=== PATIENT | female | born 1940 | race African-American/Black ===

== ENCOUNTER 2024-06-05 17:20 | Emergency (ER) | payer OTHER, MEDICAID ==
[~2024-06-05] VITALS: Ht 157.5 cm; Wt 84.4 kg
[2024-06-05 18:21] VITALS: BP 117/78; RESP 16; O2SAT 96
[2024-06-05 18:56] VITALS: PULSE 52
[2024-06-05 19:25] LABS: Hematocrit 40.7 % (36.0-46.0); Hemoglobin 13.9 g/dL (12.2-16.2); Mean Corpuscular Hemoglobin 32.9 pg (28.0-32.0); Mean Corpuscular Hgb Conc. 34.2 g/dL (32.0-36.0); Mean Corpuscular Volume 96.2 fL (80.0-100.0); Platelet Count (auto) 196 10^3/uL (140-450); Red Blood Cells 4.23 10^6/uL (4.0-5.20); Red Cell Distribution Width 13.6 % (11.8-14.3); White Blood Cell 4.9 10^3/uL (4.4-10.8)
[2024-06-05 19:27] LABS: Anion Gap 4 (5-15); Carbon Dioxide 31 mmol/L (20-31); Chloride 104 mmol/L (98-107); Potassium 4.7 mmol/L (3.5-5.1); Sodium 139 mmol/L (136-145)
[2024-06-05 19:28] LABS: Calcium 10.1 mg/dL (8.7-10.4)
[2024-06-05 19:32] LABS: Glucose 87 mg/dL (74-106)
[2024-06-05 19:33] LABS: BUN/Creatinine Ratio 10.7 (10.0-20.0); Blood Urea Nitrogen 9 mg/dL (9-23)
[2024-06-05 19:35] LABS: Band Neutrophils % (manual) 0; Basophils % (manual) 0 (0.0-2.0); Blast Cells 0; Metamyelocytes % 0; Myelocytes % 0; Promyelocytes % 0; Reactive Lymphocytes 0
[2024-06-05] MEDS ORDERED: MORPHINE SULFATE 4 MG/ML SYR/VIAL IV ONE (19:45)
[2024-06-05] MEDS ORDERED: ONDANSETRON HCL 4 MG/2 ML VIAL IV ONE (19:45)
--- NOTE | 2024-06-05 19:50 | ED.PDOC ---
History of Present Illness HPI Comments 84-year-old female brought in by family for evaluation of back pain. Patient states she started experiencing right lower back pain since yesterday, sharp, aching, constant, radiating down posterior right leg, with notable swelling of the right leg. Noted bilateral lower extremity swelling for the past week, right worse than the the left. Patient then started experiencing the back pain radiating up the right posterior chest area. She denies any urinary symptoms, denies any nausea or vomiting. Patient has had medicated with Firestone and tramadol at home with no relief. And states she is having a lot of difficulty ambulating due to the pain. Chief Complaint: Back Pain Time Seen by MD: 19:49 Primary Care Provider: PARAMJIT Verma Notes: Nurses Notes Allergies: Coded Allergies: NO KNOWN ALLERGIES (Unverified , 06/05/24) Information Source: Patient Mode of Arrival: Wheelchair Severity: Moderate Timing: Hours Duration: Since onset Prehospital treatment: None Medication Refill: For: Other Past Medical History PAST MEDICAL HISTORY: Anxiety, CAD, HTN, UTI'S Past Medical History (Other): Chronic back pain Surgical History: PTCA, Denies all surgeries COMPENSATION PROGRAMS MANAGER History: Denies all COMPENSATION PROGRAMS MANAGER Hx Family History Family History: Reviewed,noncontributory to illness Social History Smoker: Non-Smoker Alcohol: Denies ETOH Use Drugs: Denies Drug Use Lives In: Home Constitutional: denies: chills, diaphoresis, fatigue, fever, malaise, sweats, weakness, others EENTM: denies: blurred vision, double vision, ear bleeding, ear discharge, ear drainage, ear pain, ear ringing, eye pain, eye redness, hearing loss, mouth pain, mouth swelling, nasal discharge, nose bleeding, nose congestion, nose pain, photophobia, tearing, throat pain, throat swelling, voice changes, others Respiratory: denies: cough, hemoptysis, orthopnea, SOB at rest, shortness of breath, SOB with excertion, stridor, wheezing, others Cardiovascular: denies: chest pain, dizzy spells, diaphoresis, Dyspnea on exertion, edema, irregular heart beat, left arm pain, lightheadedness, palpitations, PND, syncope, others Gastrointestinal: denies: abdomen distended, abdominal pain, blood streaked bowels, constipated, diarrhea, dysphagia, difficulty swallowing, hematemesis, melena, nausea, poor appetite, poor fluid intake, rectal bleeding, rectal pain, vomiting, others Genitourinary: denies: abnormal vagina bleeding, burning, dyspareunia, dysuria, flank pain, frequency, hematuria, incontinence, pain, , vagina dis charge, urgency, others Neurological: denies: dizziness, fainting, headache, left sided numbness, left sided weakness, numbness, paresthesia, pre-existing deficit, right sided numbness, right sided weakness, seizure, speech problems, tingling, tremors, weakness, others Musculoskeletal: reports: back pain, muscle pain (Right leg); denies: gout, joint pain, joint swelling, muscle stiffness, neck pain, others Integumetry: denies: bruises, change in color, change in hair/nails, dryness, laceration, lesions, lumps, rash, wounds, others Allergic/Immunocompromised: denies: Difficulty Healing, Frequent Infections, Hives, Itching, others Hematologic/Lymphatic: denies: anemia, blood clots, easy bleeding, easy bruising, swollen glands, others Endocrine: denies: excessive hunger, excessive sweating, excessive thirst, excessive urination, flushing, intolerance to cold, intolerance to heat, unexplained weight gain, unexplained weight loss, others Psychiatric: denies: anxiety, bipolar disorder, depression, hopeless, panic disorder, schizophrenia, sleepless, suicidal, others Physical Exam General Appearance: No Apparent Distress, Obese HEENT: Other (Unremarkable) Neck: Full Range of Motion, Non-Tender, Normal Inspection Respiratory: Lungs Clear, No Accessory Muscle Use, No Respiratory Distress, Normal Breath Sounds Cardiovascular: No JVD, Regular Rate/Rhythm Breast Exam: Deferred Gastrointestinal: Non Tender, Soft Genitalia: Deferred Pelvic: Deferred Rectal: Deferred Extremities: Leg edema, Pedal edema, Other (Bilateral lower extremity 2+ edema, right greater than left) Musculoskeletal : Location: Right (Right-sided thoracic and lumbar paraspinal tenderness.) Neurologic: Alert (Oriented x4), Normal Affect, Normal Mood, Other (Moves all extremities. No gross focal deficit.) Cerebellar Function: NOT DONE Reflexes: NOT DONE Skin: Dry, Normal Color, Warm Lymphatic: NOT DONE Was a procedure done? Was a procedure done?: No Differential Dx Considerations may include: Musculoskeletal pain, disc disease, UTI, kidney stones, sciatica, DVT, CHF, venous insufficiency among others X-Ray, Labs, Meds, VS Vital Signs Date Time Temp Pulse Resp B/P (MAP) Pulse Ox O2 Delivery O2 Flow Rate FiO2 06/05/24 18:56 52 06/05/24 18:21 97.7 58 16 117/78 (91) 96 06/05/24 18:12 54 Lab Test 06/05/24 20:45 06/05/24 18:49 Range/Units Troponin I High Sensitivity 11 11 </=34 ng/L Thyroid Stimulating Hormone (TSH) 1.86 0.55-4.78 uIU/mL White Blood Count 4.9 4.4-10.8 10^3/uL Red Blood Count 4.23 4.0-5.20 10^6/uL Hemoglobin 13.9 12.2-16.2 g/dL Hematocrit 40.7 36.0-46.0 % Mean Corpuscular Volume 96.2 80.0-100.0 fL Mean Corpuscular Hemoglobin 32.9 H 28.0-32.0 pg Mean Corpuscular Hemoglobin Concent 34.2 32.0-36.0 g/dL Red Cell Distribution Width 13.6 11.8-14.3 % Platelet Count 196 140-450 10^3/uL Mean Platelet Volume 7.7 6.9-10.8 fL Neutrophils (%) (Auto) 37.0-80.0 % Lymphocytes (%) (Auto) 10.0-50.0 % Monocytes (%) (Auto) 0.0-12.0 % Basophils (%) (Auto) 0.0-2.0 % Neutrophils # (Auto) 1.6-8.6 10 ^3/uL Lymphocytes # (Auto) 0.4-5.4 10 ^3/uL Monocytes # (Auto) 0-1.3 10 ^3/uL Differential Total Cells Counted 100.0 100 Neutrophils % (Manual) 57 37.0-80.0 Band Neutrophils % (Manual) 0 Lymphocytes % (Manual) 32 10.0-50.0 Monocytes % (Manual) 10 0-12 Eosinophils % (Manual) 1 0-7 Basophils % (Manual) 0 0.0-2.0 Metamyelocytes % (manual) 0 Myelocytes % (Manual) 0 Promyelocytes % (Manual) 0 Blast Cells % (Manual) 0 Reactive Lymphocytes 0 Platelet Estimate Adequate Sodium Level 139 136-145 mmol/L Potassium Level 4.7 3.5-5.1 mmol/L Chloride Level 104 98-107 mmol/L Carbon Dioxide Level 31 20-31 mmol/L Anion Gap 4 L 5-15 Blood Urea Nitrogen 9 9-23 mg/dL Creatinine 0.84 0.550-1.02 mg/dL Glomerular Filtration Rate Calc 68 >90 mL/min BUN/Creatinine Ratio 10.7 10.0-20.0 Serum Glucose 87 74-106 mg/dL Hemoglobin A1c 5.5 <5.7 % A1C Calcium Level 10.1 8.7-10.4 mg/dL B-Type Natriuretic Peptide 112.54 0-100 pg/mL Bilateral lower extremity venous duplex Clinical History: R>L LE edema Comparison: None Technique: Duplex Doppler evaluation of the deep venous systems of both lower extremities from the common femoral veins to the popliteal veins including color Doppler and spectral/pulsed waveform analysis was performed. Findings: RIGHT SIDE: The common femoral vein demonstrates appropriate compressibility and waveform variability. There is compressibility/patency of the great saphenous vein at the proximal thigh. The femoral vein demonstrates appropriate compressibility and waveform variability. The deep femoral vein demonstrates appropriate compressibility and waveform variability. The popliteal vein demonstrates appropriate compressibility and waveform variability. There is normal compressibility at the tibioperoneal trunk. LEFT SIDE: The common femoral vein demonstrates appropriate compressibility and waveform variability. There is compressibility/patency of the great saphenous vein at the proximal thigh. The femoral vein demonstrates appropriate compressibility and waveform variability. The deep femoral vein demonstrates appropriate compressibility and waveform variability. The popliteal vein demonstrates appropriate compressibility and waveform variability. There is normal compressibility at the tibioperoneal trunk. Impression: No right or left femoropopliteal venous thrombosis. Bilateral cystic lesions in the popliteal fossa measuring 7 cm in the right and 4 cm on the left. These demonstrate internal debris. 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 EXAM: CT THORACIC SPINE WO CONTRAS, CT LS SPINE WO CONTRAST INDICATION: back pain EXAM DATE: 06/05/2024 09:01 PM COMPARISON: None TECHNIQUE: Multiple axial CT images of the thoracic and lumbar spine were obtained using bone algorithm. Axial and coronal reformatting was done. Bone and soft tissue windows were reviewed. Radiation Dose Information: Thoracic CT Dose: CTDI volume is 22.75 mGy. Dose-length product is 782.17 mGy*cm Lumbar CT Dose: CTDI volume is 31.83 mGy. Dose-length product is 1067.0 mGy*cm Findings: There is no evidence of an acute fracture or spondylolisthesis. The vertebral body heights are well-maintained. Moderate spondylosis of the thoracolumbar spine. No evidence of degenerative disc disease. No neuroforaminal narrowing. No spinal canal stenosis. There is a normal thoracic kyphosis and lumbar lordosis. The paraspinal soft tissues appear within normal limits. Cardiomegaly with a small pericardial effusion. Severe coronary atherosclerosis versus stents. Right renal cyst. Diverticulosis. Moderate aortoiliac atherosclerosis. Moderate rectal fecal burden. C7-T1: Normal T1-T2: Normal T2-T3: Normal T3-T4: Normal T4-T5: Normal T5-T6: Normal T6-T7: Normal T7-T8: Normal T8-T9: Normal T9-T10: Normal T10-T11: Normal T11-T12: Normal T12-L1: Normal L1-L2: Severe degenerative disc disease. L2-L3: Moderate degenerative disc disease L3-L4: Moderate degenerative disc disease L4-L5: Moderate degenerative disc disease L5-S1: Normal Impression: 1. No acute osseous abnormalities. 2. Moderate degenerative changes of the thoracolumbar spine with multilevel lumbar degenerative disc disease. X-Ray, Labs, Meds, VS Comment 84-year-old female with a history of hypertension, CAD, UTIs and chronic back pain complaining of severe back pain and lower extremity edema making it difficult to ambulate Vitals remarkable for heart rate 52 Exam remarkable for right-sided thoracic and lumbar paraspinal tenderness, 2+ edema bilateral lower extremities CT T-spine Impression: 1. No acute osseous abnormalities. 2. Moderate degenerative changes of the thoracolumbar spine with multilevel lumbar degenerative disc disease. CT LS-spine Impression: 1. No acute osseous abnormalities. 2. Moderate degenerative changes of the thoracolumbar spine with multilevel lumbar degenerative disc disease. Bilateral lower extremity Doppler ultrasound negative for DVT CBC, basic metabolic panel, BNP unremarkable for any abnormality of acute significance, UA pending Patient treated with the following in the ED: Morphine 4 mg IV, Zofran 4 mg IV with improvement of pain. Patient did not have pain relief with Firestone at home, and is at risk for falls. Plan is to admit the patient for pain control and PT/OT evaluation. Time of 1ST Reevaluation: 19:45 Reevaluation 1ST: Unchanged Patient Education/Counseling: Diagnosis, Treatment Family Education/Counseling: No Family Present Departure 1 Departure Time of Disposition: 22:09 Impression: Primary Impression: Intractable back pain Additional Impression: Lower extremity edema Disposition: ADMITTED INPATIENT Admit to: Med Surg Condition: Guarded Critical Care Note Critical Care Time?: No Stability Stability form required: No Heart Score Heart Score: Heart Score Response (Comments) Value History N/A 0 EKG N/A 0 Age N/A 0 Risk Factors N/A 0 Troponin N/A 0 Total 0 I personally scribed for STAN JOAQUIN MD (JOSE GUADALUPEMATILDE) on 06/05/24 at 19:50. Electronically submitted by Skyler Zapata ([email or web address]). I personally scribed for STAN JOAQUIN MD (DORYS) on 06/05/24 at 21:08. Electronically submitted by Skyler Zapata ([email or web address]). I personally scribed for STAN JOAQUIN MD (DORYS) on 06/05/24 at 21:44. Electronically submitted by Skyler Zapata ([email or web address]). STAN JOAQUIN MD Jun 05, 2024 19:50
[2024-06-05 20:14] LABS: Eosinophils % (manual) 1 (0-7); Lymphocytes % (manual) 32 (10.0-50.0); Monocytes % (manual) 10 (0-12); Platelet Estimate Adequate
--- NOTE | 2024-06-05 21:05 | DVH ---
Bilateral lower extremity venous duplex Clinical History: R>L LE edema Comparison: None Technique: Duplex Doppler evaluation of the deep venous systems of both lower extremities from the common femora l veins to the popliteal veins including color Doppler and spectral/pulsed waveform analysis was perf ormed. Findings: RIGHT SIDE: The common femoral vein demonstrates appropriate compressibility and waveform variability. There is compressibility/patency of the great saphenous vein at the proximal thigh. The femoral vein demonstrates appropriate compressibility and waveform variability. The deep femoral vein demonstrates appropriate compressibility and waveform variability. The popliteal vein demonstrates appropriate compressibility and waveform variability. There is normal compressibility at the tibioperoneal trunk. LEFT SIDE: The common femoral vein demonstrates appropriate compressibility and waveform variability. There is compressibility/patency of the great saphenous vein at the proximal thigh. The femoral vein demonstrates appropriate compressibility and waveform variability. The deep femoral vein demonstrates appropriate compressibility and waveform variability. The popliteal vein demonstrates appropriate compressibility and waveform variability. There is normal compressibility at the tibioperoneal trunk. Impression: No right or left femoropopliteal venous thrombosis. Bilateral cystic lesions in the popliteal fossa measuring 7 cm in the right and 4 cm on the left. Th jona demonstrate internal debris. 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
--- NOTE | 2024-06-05 21:41 | DVH ---
EXAM: CT THORACIC SPINE WO CONTRAS, CT LS SPINE WO CONTRAST INDICATION: back pain EXAM DATE: 06/05/2024 09:01 PM COMPARISON: None TECHNIQUE: Multiple axial CT images of the thoracic and lumbar spine were obtained using bone algorit hm. Axial and coronal reformatting was done. Bone and soft tissue windows were reviewed. Radiation Dose Information: Thoracic CT Dose: CTDI volume is 22.75 mGy. Dose-length product is 782.17 mGy*cm Lumbar CT Dose: CTDI volume is 31.83 mGy. Dose-length product is 1067.0 mGy*cm Findings: There is no evidence of an acute fracture or spondylolisthesis. The vertebral body heights are well-m aintained. Moderate spondylosis of the thoracolumbar spine. No evidence of degenerative disc disease. No neuroforaminal narrowing. No spinal canal stenosis. There is a normal thoracic kyphosis and lumbar lordosis. The paraspinal soft tissues appear within no rmal limits. Cardiomegaly with a small pericardial effusion. Severe coronary atherosclerosis versus stents. Right renal cyst. Diverticulosis. Moderate aortoiliac atherosclerosis. Moderate rectal fecal burden. C7-T1: Normal T1-T2: Normal T2-T3: Normal T3-T4: Normal T4-T5: Normal T5-T6: Normal T6-T7: Normal T7-T8: Normal T8-T9: Normal T9-T10: Normal T10-T11: Normal T11-T12: Normal T12-L1: Normal L1-L2: Severe degenerative disc disease. L2-L3: Moderate degenerative disc disease L3-L4: Moderate degenerative disc disease L4-L5: Moderate degenerative disc disease L5-S1: Normal Impression: 1. No acute osseous abnormalities. 2. Moderate degenerative changes of the thoracolumbar spine with multilevel lumbar degenerative disc disease.
--- NOTE | 2024-06-05 23:28 | DVHINCON2 ---
PIOTR HERRON RESIDENT 06/05/24 2328: Date of service: Jun 05, 2024 History of Present Illness This is a 84-year-old female with past medical history of hypertension, chronic back pain, osteoarthritis, rheumatoid arthritis, atrial fibrillation presented to the ED with a chief complaint of intractable back pain for 1 day prior to this admission. Patient states back pain started yesterday going down to his no drawer both legs, 8/10, and associated with swelling of the bilateral legs. Doppler scan of the lower limb revealed no right or left femoropopliteal venous thrombosis.Bilateral cystic lesions in the popliteal fossa measuring 7 cm in the right and 4 cm on the left. 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 CT of the lumber and thoracic spine demonstrated No acute osseous abnormalities and moderate degenerative changes of the thoracolumbar spine with multilevel lumbar degenerative disc disease. CBC and CMP are unremarkable. Past Medical History Chronic back pain , osteoarthritis, rheumatoid arthritis ,hypertension, chronic atrial fibrillation. Past Surgical History Cholecystectomy, hysterectomy, carpal tunnel surgery on both hands, surgery for vocal cord nodule Allergies: Coded Allergies: NO KNOWN ALLERGIES (Unverified , 06/05/24) Current Medications Current Medications Medications (Trade) Dose Ordered Sig/Shani Route PRN Reason Start Time Stop Time Status Last Admin Morphine Sulfate 2 mg Q6HPRN IV 06/06/24 00:00 UNV Pantoprazole Sodium (Protonix Tablet) 40 mg DAILY PO 06/06/24 10:00 UNV Vital Signs Vital Signs Date Time Temp Pulse Resp B/P (MAP) Pulse Ox O2 Delivery O2 Flow Rate FiO2 06/05/24 18:56 52 06/05/24 18:21 97.7 16 117/78 (91) 96 Physical Exam Physical examination: General Appearance: Alert, Oriented X3, Cooperative, No acute distress HEENT: Atraumatic, PERRLA, EOMI, Mucous membrane moist/pink Respiratory: Clear to auscultation, Normal air movement Cardiovascular: Regular rate, Normal S1, Normal S2, No murmurs, no chest wall tenderness Abdominal: Normal bowel sounds, Soft, No tenderness, No hepatospenomegaly, No masses Extremities: No clubbing, No cyanosis, No edema, Normal pulses, No tenderness/swelling Skin: No rashes, No breakdown, No significant lesion Neuro: Normal speech, Strength at 5/5 X4 ext, Normal tone, Sensation intact, grossly intact cranial nerves. Psych/Mental Status: Mental status NL, Mood NL Labs/Diagnostic Data Labs Test 06/05/24 20:45 06/05/24 18:49 Range/Units Troponin I High Sensitivity 11 </=34 ng/L White Blood Count 4.9 4.4-10.8 10^3/uL Red Blood Count 4.23 4.0-5.20 10^6/uL Hemoglobin 13.9 12.2-16.2 g/dL Hematocrit 40.7 36.0-46.0 % Mean Corpuscular Volume 96.2 80.0-100.0 fL Mean Corpuscular Hemoglobin 32.9 H 28.0-32.0 pg Mean Corpuscular Hemoglobin Concent 34.2 32.0-36.0 g/dL Red Cell Distribution Width 13.6 11.8-14.3 % Platelet Count 196 140-450 10^3/uL Mean Platelet Volume 7.7 6.9-10.8 fL Neutrophils (%) (Auto) 37.0-80.0 % Lymphocytes (%) (Auto) 10.0-50.0 % Monocytes (%) (Auto) 0.0-12.0 % Basophils (%) (Auto) 0.0-2.0 % Neutrophils # (Auto) 1.6-8.6 10 ^3/uL Lymphocytes # (Auto) 0.4-5.4 10 ^3/uL Monocytes # (Auto) 0-1.3 10 ^3/uL Differential Total Cells Counted 100.0 100 Neutrophils % (Manual) 57 37.0-80.0 Band Neutrophils % (Manual) 0 Lymphocytes % (Manual) 32 10.0-50.0 Monocytes % (Manual) 10 0-12 Eosinophils % (Manual) 1 0-7 Basophils % (Manual) 0 0.0-2.0 Metamyelocytes % (manual) 0 Myelocytes % (Manual) 0 Promyelocytes % (Manual) 0 Blast Cells % (Manual) 0 Reactive Lymphocytes 0 Platelet Estimate Adequate Sodium Level 139 136-145 mmol/L Potassium Level 4.7 3.5-5.1 mmol/L Chloride Level 104 98-107 mmol/L Carbon Dioxide Level 31 20-31 mmol/L Anion Gap 4 L 5-15 Blood Urea Nitrogen 9 9-23 mg/dL Creatinine 0.84 0.550-1.02 mg/dL Glomerular Filtration Rate Calc 68 >90 mL/min BUN/Creatinine Ratio 10.7 10.0-20.0 Serum Glucose 87 74-106 mg/dL Calcium Level 10.1 8.7-10.4 mg/dL B-Type Natriuretic Peptide 112.54 0-100 pg/mL Assessment Assessment and plan - Patient presented with intractable back pain that radiates down to both legs with bilateral leg swelling. Doppler scan of the lower limb excluded the possibility of DVT and CT of thoracic and lumbar spine revealed no acute osseous abnormality on chronic degenerative changes in the spine - Patient was given IV morphine 4 mg once - Physical examination , labs and initial imaging excluded the possibility of cord compression or other acute medical emergencies. - Patient is advised to continue home meds for chronic back pain - Patient is being discharged and advice to book an appointment with PCP in 7 days. Plan discussed with: Patient, Other WILFRIDO WESTFALL MD 06/08/24 2002: Date of service: Jun 05, 2024 Allergies: Coded Allergies: NO KNOWN ALLERGIES (Unverified , 06/05/24) Plan discussed with: Patient Date of Service: Jun 05, 2024 Billing Provider: WILFRIDO WESTFALL MD Common Visit Codes: 70586-CIJ/OBS SAME DATE (HIGH) PIOTR HERRON RESIDENT Jun 05, 2024 23:28 WILFRIDO WESTFALL MD Jun 08, 2024 20:02
[2024-06-06] MEDS ORDERED: MORPHINE SULFATE INJ 2 MG/ml SYRG IV PRN
--- NOTE | 2024-06-06 00:08 | DVH ---
CHEST RADIOGRAPH Indication: Chest Pain Technique: Single frontal view of the chest was obtained Comparison: None FINDINGS: Lines and Tubes: None Lungs: Clear Pleura: No effusion. No pneumothorax. Cardiomediastinal contours: Unremarkable Bones: Unremarkable IMPRESSION: 1. Clear lungs.
[2024-06-06] MEDS ORDERED: PANTOPRAZOLE 40 MG TAB PO SCH (10:00)
--- NOTE | 2024-06-08 14:01 | ECG ---
[facility] Test Date: 2024-06-05 Test Time: 18:12:17 Pat Name: STEPHENIE OCHOA Department: ER Room: [address] [place] [address] A Gender: F Sorting Supervisor: MELY : 1940 Requested By: STAN LAGUERRE Order Number: [id number] Reading MD: Cade Veronica Measurements Intervals [place] Rate: 54 P: 19 NC: 195 QRS: -37 QRSD: 92 T: -9 QT: 505 QTc: 479 Interpretive Statements Sinus rhythm Inferior infarct, old Consider anterior infarct Baseline wander in lead(s) V3 Electronically Signed On 06-09-2024 18:13:57 PST by Cade Veronica Please click the below link to view image of tracing.
== END 2024-06-05 22:59 | disposition admitted as inpatient to this hospital (09) ==
LOC: ER 17:20 → OVERFLOW 22:57 → UNDOADMIN 22:57 → UNDODISIN 23:24
DX: E11.8 Type 2 diabetes mellitus with unspecified complications (principal); R60.0 Localized edema; M54.50 Low back pain, unspecified; I10 Essential (primary) hypertension; F41.9 Anxiety disorder, unspecified; G89.29 Other chronic pain; I25.10 Atherosclerotic heart disease of native coronary artery without angina pectoris
CPT/HCPCS: 36415; 71045; 72128; 72131; 80048; 83036; 83880; 84443; 84484; 85007; 85027; 93005; 93970; G0378

== ENCOUNTER 2024-12-09 12:36 | Inpatient (IN) | payer OTHER, MEDICAID ==
[~2024-12-09] VITALS: Ht 157.5 cm; Wt 82.0 kg
[2024-12-09 13:52] LABS: Hematocrit 40.5 % (36.0-46.0); Hemoglobin 13.8 g/dL (12.2-16.2); Mean Corpuscular Hemoglobin 32.5 pg (28.0-32.0); Mean Corpuscular Volume 95.2 fL (80.0-100.0); Nucleated Red Blood Cells % 0.1 %
[2024-12-09 14:06] LABS: Calcium 10.1 mg/dL (8.7-10.4); Chloride 105 mmol/L (98-107); Potassium 4.4 mmol/L (3.5-5.1); Sodium 142 mmol/L (136-145)
[2024-12-09 14:07] LABS: Anion Gap 7 (5-15); Carbon Dioxide 30 mmol/L (20-31)
[2024-12-09 14:12] LABS: BUN/Creatinine Ratio 12.2 (10.0-20.0); Blood Urea Nitrogen 12 mg/dL (9-23); Glucose 100 mg/dL (74-106)
[2024-12-09 15:50] LABS: Urine Protein, UAD Negative (Negative)
--- NOTE | 2024-12-09 17:48 | ED.PDOC ---
History of Present Illness HPI Comments 84F presents with three days of right-sided flank pain associated with dysuria and polyuria. Patient reports tactile fevers and right flank pain that is 8/10 nonradiating it is not relieved by anything. 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 Family History Family History: Reviewed,noncontributory to illness Social History Smoker: Non-Smoker Alcohol: Denies ETOH Use Drugs: Denies Drug Use Lives In: Home All Other Systems: Reviewed and Negative Physical Exam General Appearance: Mild Distress HEENT: Pharynx Normal Neck: Normal Inspection Respiratory: No Respiratory Distress Cardiovascular: No Edema Breast Exam: Deferred Gastrointestinal: Non Tender Genitalia: Deferred Pelvic: Deferred Rectal: Deferred Extremities: No pedal edema Neurologic: No Motor Deficits Cerebellar Function: NOT DONE Reflexes: NOT DONE Skin: Normal Color Lymphatic: NOT DONE Was a procedure done? Was a procedure done?: No Differential Dx Considerations may include: Pyelonephritis, UTI, viral syndrome X-Ray, Labs, Meds, VS Vital Signs Date Time Temp Pulse Resp B/P (MAP) Pulse Ox O2 Delivery O2 Flow Rate FiO2 12/09/24 13:00 98.3 67 16 109/60 (76) 95 98.3 Lab Test 12/09/24 13:39 12/09/24 13:04 Range/Units White Blood Count 6.7 4.4-10.8 10^3/uL Red Blood Count 4.25 4.0-5.20 10^6/uL Hemoglobin 13.8 12.2-16.2 g/dL Hematocrit 40.5 36.0-46.0 % Mean Corpuscular Volume 95.2 80.0-100.0 fL Mean Corpuscular Hemoglobin 32.5 H 28.0-32.0 pg Mean Corpuscular Hemoglobin Concent 34.1 32.0-36.0 g/dL Red Cell Distribution Width 13.6 11.8-14.3 % Platelet Count 181 140-450 10^3/uL Mean Platelet Volume 7.4 6.9-10.8 fL Neutrophils (%) (Auto) 57.4 37.0-80.0 % Lymphocytes (%) (Auto) 27.6 10.0-50.0 % Monocytes (%) (Auto) 12.4 H 0.0-12.0 % Eosinophils (%) (Auto) 1.9 0.0-7.0 % Basophils (%) (Auto) 0.7 0.0-2.0 % Neutrophils # (Auto) 3.8 1.6-8.6 10 ^3/uL Lymphocytes # (Auto) 1.8 0.4-5.4 10 ^3/uL Monocytes # (Auto) 0.8 0-1.3 10 ^3/uL Eosinophils # (Auto) 0.1 0-0.8 10 ^3/uL Basophils # (Auto) 0 0-0.2 10 ^3/uL Nucleated Red Blood Cells 0.1 % Sodium Level 142 136-145 mmol/L Potassium Level 4.4 3.5-5.1 mmol/L Chloride Level 105 98-107 mmol/L Carbon Dioxide Level 30 20-31 mmol/L Anion Gap 7 5-15 Blood Urea Nitrogen 12 9-23 mg/dL Creatinine 0.98 0.550-1.02 mg/dL Glomerular Filtration Rate Calc 57 >90 mL/min BUN/Creatinine Ratio 12.2 10.0-20.0 Serum Glucose 100 74-106 mg/dL Calcium Level 10.1 8.7-10.4 mg/dL Troponin I High Sensitivity 59 *H </=34 ng/L Urine Color Yellow Yellow Urine Clarity Turbid H Clear Urine pH 6.0 5.0-9.0 Urine Specific [place] 1.021 1.001-1.035 Urine Protein Negative Negative Urine Ketones Negative Negative Urine Blood Negative Negative /uL Urine Nitrite 2+ H Negative Urine Bilirubin Negative Negative Urine Urobilinogen 2 H Negative mg/dL Urine Leukocyte Esterase 3+ Negative /uL Urine RBC 1 0 - 4 /hpf Urine Microscopic WBC 39 H 0-5 /HPF Urine Squamous Epithelial Cells Mod <5 /hpf Urine Bacteria Mod H None Seen /hpf Urine Mucus Few None Seen Urine Glucose Normal Normal mg/dL Time of 1ST Reevaluation: 17:46 Reevaluation 1ST: Improved Patient Education/Counseling: Diagnosis, Treatment Family Education/Counseling: No Family Present SEPSIS Sepsis Screen Date sepsis recognized/suspect: Dec 09, 2024 Time Sepsis recognized/suspect: 1300 Recent Procedure: No On Antibiotic Therapy: Yes Respiratory Rate >20: No Heart Rate >90: No Temp<36 C (96.8 F) or >38.3 C: No SBP <90 or MAP <65 mmHG: No New Acute Mental Status Change: No Is the patient on CPAP, BIPAP,: No Physician Orders NS (12/09/24 17:45) Ceftriaxone Ivpb Rocephin (12/09/24 17:45) Vital Signs Date Time Temp Pulse Resp B/P (MAP) Pulse Ox O2 Delivery O2 Flow Rate FiO2 12/09/24 13:00 98.3 67 16 109/60 (76) 95 98.3 Laboratory Tests Test 12/09/24 13:39 White Blood Count 6.7 10^3/uL (4.4-10.8) Departure 1 Departure Time of Disposition: 17:47 (Patient with pyelonephritis. Patient is not septic. We will admit patient for further workup) Impression: Primary Impression: Pyelonephritis Additional Impression: Flank pain Disposition: ADMITTED INPATIENT Admit to: Med Surg Condition: Serious Critical Care Note Critical Care Time?: Yes Critical care comment: Intractable abdominal pain Authorized and Performed by: Krissy Menjivar MD Total critical care time: Approximately 37 minutes Due to a high probability of clinically significant, life threatening deterioration, the patient required my highest level of preparedness to intervene emergently and I personally spent this critical care time directly and personally managing the patient. This critical care time included obtaining a history; examining the patient; pulse oximetry; ordering and review of studies; arranging urgent treatment with development of a management plan; evaluation of patient's response to treatment; frequent reassessment; and, discussions with other providers. This critical care time was performed to assess and manage the high probability of imminent, life-threatening deterioration that could result in multi-organ failure. It was exclusive of separately billable procedures and treating other patients and teaching time. Please see my other sections and the rest of the note for further information on patient assessment and treatment. Stability Stability form required: KRISSY Luque MD Dec 09, 2024 17:48
[2024-12-09] MEDS: SODIUM CHLORIDE 0.9% 1,000 ML IV ONE (17:57)
[2024-12-09] MEDS: cefTRIAXone 1GM/50ML D5W 50 ML IV ONE ×2 (17:57→21:02)
[2024-12-09] MEDS: MORPHINE SULFATE 4 MG/ML SYR/VIAL IV ONE (17:59)
[2024-12-09] MEDS: ONDANSETRON HCL 4 MG/2 ML VIAL IV ONE (17:59)
[2024-12-09 18:08] VITALS: PULSE 74; RESP 15; O2SAT 98
--- NOTE | 2024-12-09 20:02 | DVHHP2 ---
Admitting Diagnosis: Dysuria History of Present Illness 84F presents with three days of right-sided flank pain associated with dysuria and polyuria. Patient reports tactile fevers and right flank pain that is 8/10 nonradiating it is not relieved by anything. 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 Family History Family History: Reviewed,noncontributory to illness Social History Smoker: Non-Smoker Alcohol: Denies ETOH Use Drugs: Denies Drug Use Lives In: Home Allergies: Coded Allergies: NO KNOWN ALLERGIES (Unverified , 06/05/24) Current Medications Current Medications Medications (Trade) Dose Ordered Sig/Shani Route PRN Reason Start Time Stop Time Status Last Admin Ceftriaxone Sodium/Dextrose 50 ml @ 50 mls/hr DAILY IV 12/10/24 10:00 Sodium Chloride (Saline Lock Ns) 10 ml Q8HR IV 12/09/24 22:00 Docusate Sodium (Colace Capsule) 100 mg BIDPRN PRN PO FOR CONSTIPATION 12/09/24 20:15 Acetaminophen (Tylenol Tablet) 650 mg Q6HP PRN PO PAIN SCALE 1-3 OR TEMP>100.4 12/09/24 20:15 Acetaminophen/ Hydrocodone Bitart ([place] 5/325MG Tab) 1 tab Q4HP PRN PO MODERATE PAIN (4-6 PAIN SCALE) 12/09/24 20:15 Ondansetron HCl (Zofran) 4 mg Q4HP PRN IV NAUSEA / VOMITING 12/09/24 20:15 Enoxaparin Sodium (Lovenox) 40 mg DAILY SC 12/10/24 10:00 Vital Signs Vital Signs Date Time Temp Pulse Resp B/P (MAP) Pulse Ox O2 Delivery O2 Flow Rate FiO2 12/09/24 19:45 Room Air* 0 21 12/09/24 19:44 71 18 130/65 12/09/24 19:40 100 12/09/24 13:00 98.3 98.3 Physical Exam Generally-85 years old woman, overweight, sitting chair. Mild distress HEENT-atraumatic normocephalic Heart-regular rate and rhythm Lungs clear to auscultation Abdomen soft nontender nondistended Musculoskeletal-no edema cyanosis Neuro-AO x3, no focal deficits SEPSIS Sepsis Screen Date sepsis recognized/suspect: Dec 09, 2024 Time Sepsis recognized/suspect: 1300 Recent Procedure: No On Antibiotic Therapy: Yes Respiratory Rate >20: No Heart Rate >90: No Temp<36 C (96.8 F) or >38.3 C: No SBP <90 or MAP <65 mmHG: No New Acute Mental Status Change: No Is the patient on CPAP, BIPAP,: No Physician Orders Blood Culture (12/09/24 20:02) Urine Bacterial Culture (12/09/24 20:02) Lactated Ringer's (12/09/24 20:15) Admit (12/09/24 20:02) Code Status (12/09/24 20:02) Vital Signs .PER UNIT PROTOCOL (12/09/24 20:02) Review Orders With Adm.Md (12/09/24 20:02) Encourage Activity As Tolerate (12/09/24 20:02) Regular Diet (12/10/24 Breakfast) Sodium Chloride Lock (Saline Lock Ns) (12/09/24 22:00) Docusate Sodium Capsule (Colace Capsule) (12/09/24 20:15) Acetaminophen Tablet (Tylenol Tablet) (12/09/24 20:15) Notify Md Of Changes From Base (12/09/24 20:02) Advance Directive (12/09/24 20:02) Patient Condition (12/09/24 20:02) Allergies (12/09/24 20:02) Hydrocodone-Acet 5/325mg Tab ([place] 5/32 (12/09/24 20:15) Ondansetron Hcl (Zofran) (12/09/24 20:15) Enoxaparin Sodium (Lovenox) (12/10/24 10:00) Comprehensive Metabolic Panel (12/10/24 05:00) Comprehensive Metabolic Panel (12/11/24 05:00) Comprehensive Metabolic Panel (12/12/24 05:00) Comprehensive Metabolic Panel (12/13/24 05:00) Comprehensive Metabolic Panel (12/14/24 05:00) Complete Blood Count (12/10/24 05:00) Complete Blood Count (12/11/24 05:00) Complete Blood Count (12/12/24 05:00) Complete Blood Count (12/13/24 05:00) Complete Blood Count (12/14/24 05:00) Ceftriaxone 2gm/50ml D5w (Rocephin 2gm/5 (12/10/24 10:00) Ceftriaxone 1gm/50ml D5w (Rocephin) (12/09/24 20:30) Vital Signs Date Time Temp Pulse Resp B/P (MAP) Pulse Ox O2 Delivery O2 Flow Rate FiO2 12/09/24 19:45 Room Air* 0 21 12/09/24 19:44 71 18 130/65 12/09/24 19:40 71 18 130/65 (86) 100 12/09/24 18:08 74 15 98 Room Air* 0 21 12/09/24 13:00 98.3 67 16 109/60 (76) 95 98.3 Laboratory Tests Test 12/09/24 13:39 White Blood Count 6.7 10^3/uL (4.4-10.8) Medications Medications Dose Ordered Sig/Shani Route Start Time Stop Time Status Last Admin Dose Admin Ceftriaxone Sodium 50 ml @ 100 mls/hr ONCE ONCE IV 12/09/24 17:45 12/09/24 18:14 DC 12/09/24 17:57 Morphine Sulfate 4 mg ONCE ONCE IV 12/09/24 18:00 12/09/24 18:01 DC 12/09/24 19:44 Ondansetron HCl 4 mg ONCE ONCE IV 12/09/24 18:00 12/09/24 18:01 DC 12/09/24 19:38 Sodium Chloride 1,000 ml @ 1,000 mls/hr Q1H ONCE IV 12/09/24 17:45 12/09/24 18:44 DC 12/09/24 17:57 Results Labs Test 12/09/24 13:39 12/09/24 13:04 Range/Units White Blood Count 6.7 4.4-10.8 10^3/uL Red Blood Count 4.25 4.0-5.20 10^6/uL Hemoglobin 13.8 12.2-16.2 g/dL Hematocrit 40.5 36.0-46.0 % Mean Corpuscular Volume 95.2 80.0-100.0 fL Mean Corpuscular Hemoglobin 32.5 H 28.0-32.0 pg Mean Corpuscular Hemoglobin Concent 34.1 32.0-36.0 g/dL Red Cell Distribution Width 13.6 11.8-14.3 % Platelet Count 181 140-450 10^3/uL Mean Platelet Volume 7.4 6.9-10.8 fL Neutrophils (%) (Auto) 57.4 37.0-80.0 % Lymphocytes (%) (Auto) 27.6 10.0-50.0 % Monocytes (%) (Auto) 12.4 H 0.0-12.0 % Eosinophils (%) (Auto) 1.9 0.0-7.0 % Basophils (%) (Auto) 0.7 0.0-2.0 % Neutrophils # (Auto) 3.8 1.6-8.6 10 ^3/uL Lymphocytes # (Auto) 1.8 0.4-5.4 10 ^3/uL Monocytes # (Auto) 0.8 0-1.3 10 ^3/uL Eosinophils # (Auto) 0.1 0-0.8 10 ^3/uL Basophils # (Auto) 0 0-0.2 10 ^3/uL Nucleated Red Blood Cells 0.1 % Sodium Level 142 136-145 mmol/L Potassium Level 4.4 3.5-5.1 mmol/L Chloride Level 105 98-107 mmol/L Carbon Dioxide Level 30 20-31 mmol/L Anion Gap 7 5-15 Blood Urea Nitrogen 12 9-23 mg/dL Creatinine 0.98 0.550-1.02 mg/dL Glomerular Filtration Rate Calc 57 >90 mL/min BUN/Creatinine Ratio 12.2 10.0-20.0 Serum Glucose 100 74-106 mg/dL Calcium Level 10.1 8.7-10.4 mg/dL Troponin I High Sensitivity 59 *H </=34 ng/L Urine Color Yellow Yellow Urine Clarity Turbid H Clear Urine pH 6.0 5.0-9.0 Urine Specific [place] 1.021 1.001-1.035 Urine Protein Negative Negative Urine Ketones Negative Negative Urine Blood Negative Negative /uL Urine Nitrite 2+ H Negative Urine Bilirubin Negative Negative Urine Urobilinogen 2 H Negative mg/dL Urine Leukocyte Esterase 3+ Negative /uL Urine RBC 1 0 - 4 /hpf Urine Microscopic WBC 39 H 0-5 /HPF Urine Squamous Epithelial Cells Mod <5 /hpf Urine Bacteria Mod H None Seen /hpf Urine Mucus Few None Seen Urine Glucose Normal Normal mg/dL Primary Diagnosis Dysuria likely due to pyelonephritis Plan Positive urine Start ceftriaxone 2 g q.day Follow up with the urine culture , blood culture IV fluids Pain control Full code Lovenox for DVT prophylaxis No GI prophylaxis needed Regular diet Plan discussed with: Patient Problems List: (1) Pyelonephritis Status: Acute Date of Service: Dec 09, 2024 Billing Provider: IDRIS PRITCHETT MD Common Visit Codes: [id number] INP/OBS CARE (HIGH) IDRIS PRITCHETT MD Dec 09, 2024 20:01
[2024-12-09] MEDS ORDERED: DOCUSATE SOD 100 MG CAP PO PRN (20:15)
[2024-12-09] MEDS ORDERED: ACETAMINOPHEN 325 MG TAB PO PRN (20:15)
[2024-12-09] MEDS ORDERED: ONDANSETRON HCL 4 MG/2 ML VIAL IV PRN (20:15)
[2024-12-09] MEDS: LACTATED RINGER'S 1,000 ML IV ONE (20:41)
[2024-12-09] MEDS: SODIUM CHLOR 0.9% PF (SALINE LOCK) 10ML VIAL/SYR IV SCH (22:00)
[2024-12-09 23:45] VITALS: BP 136/72; PULSE 61; RESP 20; TEMP 97.7; O2SAT 96
[2024-12-10] VITALS (8 sets, daily range): BP systolic 99–136; BP diastolic 55–72; PULSE 59–68; RESP 17–18; TEMP 97.7–98.7; O2SAT 95–99
[2024-12-10] MEDS: HYDROcodone-ACET 5/325MG TAB PO PRN (00:41)
[2024-12-10 06:58] LABS: Hematocrit 41.1 % (36.0-46.0); Hemoglobin 14.3 g/dL (12.2-16.2); Mean Corpuscular Hemoglobin 32.9 pg (28.0-32.0); Mean Corpuscular Volume 94.8 fL (80.0-100.0); Nucleated Red Blood Cells % 0.2 %
[2024-12-10 07:04] LABS: Alanine Aminotransferase 23 U/L (7-40); Albumin 4.1 g/dL (3.2-4.8); Alkaline Phosphatase 60 U/L (46-116); Anion Gap 9 (5-15); BUN/Creatinine Ratio 10.4 (10.0-20.0); Bilirubin, Total 0.3 mg/dL (0.2-1.0); Calcium 9.0 mg/dL (8.7-10.4); Carbon Dioxide 26 mmol/L (20-31); Glucose 88 mg/dL (74-106); Potassium 4.0 mmol/L (3.5-5.1); Sodium 143 mmol/L (136-145); Total Protein 6.7 g/dL (5.7-8.2)
[2024-12-10 07:06] LABS: Blood Urea Nitrogen 8 mg/dL (9-23); Chloride 108 mmol/L (98-107)
[2024-12-10] MEDS: cefTRIAXone 2GM/50ML D5W 50 ML IV SCH (10:23)
[2024-12-10] MEDS: ENOXAPARIN SOD 40 MG/0.4 ML SYRINGE SC SCH (10:23)
--- NOTE | 2024-12-10 15:56 | DVHPN2 ---
Subjective She is admitted yesterday and noted to have a acute urinary tract infection. Complains of mild right flank discomfort today. Otherwise she is alert awake oriented x3. Her urine cultures were positive for Gram-negative rods Changes from previous H/P or p: No Changes Objective Vitals Vital Signs Date Time Temp Pulse Resp B/P (MAP) Pulse Ox O2 Delivery O2 Flow Rate FiO2 12/10/24 13:00 98.7 68 18 108/69 (82) 96 98.7 12/10/24 01:10 Room Air* 0 21 Intake/Output Intake and Output 12/10/24 07:00 Intake Total 250 ml Output Total 0 ml Balance 250 ml Intake Oral 200 ml IV Total 50 ml Output Urine Total 0 ml Exam Comfortable in bed without distress. Complains of mild right flank pain. HEENT neck supple no JVD. Heart regular rate and rhythm S1-S2. Lungs fair air movement without rales wheezes. Abdomen soft nontender obese positive bowel sounds. Extremities no edema positive pulses. Medications Current Medications Medications Dose Ordered Sig/Shani Route Start Time Stop Time Status Last Admin Dose Admin Ceftriaxone Sodium/Dextrose 50 ml @ 50 mls/hr DAILY IV 12/10/24 10:00 12/10/24 10:23 50 MLS/HR Sodium Chloride 10 ml Q8HR IV 12/09/24 22:00 12/10/24 05:36 10 ML Docusate Sodium 100 mg BIDPRN PRN PO 12/09/24 20:15 Acetaminophen 650 mg Q6HP PRN PO 12/09/24 20:15 Acetaminophen/ Hydrocodone Bitart 1 tab Q4HP PRN PO 12/09/24 20:15 12/10/24 11:29 1 TAB Ondansetron HCl 4 mg Q4HP PRN IV 12/09/24 20:15 Enoxaparin Sodium 40 mg DAILY SC 12/10/24 10:00 12/10/24 10:23 40 MG Laboratory Results Laboratory Tests 12/10/24 05:41 Chemistry Test 12/10/24 05:41 Albumin 4.1 g/dL (3.2-4.8) Calcium Level 9.0 mg/dL (8.7-10.4) Total Protein 6.7 g/dL (5.7-8.2) LFT Test 12/10/24 05:41 Alanine Aminotransferase (ALT) 23 U/L (7-40) Alkaline Phosphatase 60 U/L (46-116) Aspartate Amino Transferase (AST) 29 U/L (13-40) Total Bilirubin 0.3 mg/dL (0.2-1.0) Urinalysis Test 12/09/24 13:04 Urine Color Yellow (Yellow) Urine Clarity Turbid (Clear) H Urine pH 6.0 (5.0-9.0) Urine Specific [place] 1.021 (1.001-1.035) Urine Protein Negative (Negative) Urine Ketones Negative (Negative) Urine Blood Negative /uL (Negative) Urine Nitrite 2+ (Negative) H Urine Bilirubin Negative (Negative) Urine Urobilinogen 2 mg/dL (Negative) H Urine Leukocyte Esterase 3+ /uL (Negative) Urine RBC 1 /hpf (0 - 4) Urine Microscopic WBC 39 /HPF (0-5) H Urine Squamous Epithelial Cells Mod /hpf (<5) Urine Bacteria Mod /hpf (None Seen) H Urine Mucus Few (None Seen) Urine Glucose Normal mg/dL (Normal) Microbiology Microbiology Date/Time Source Procedure Growth Status 12/09/24 13:04 Voided Urine Urine Culture - Preliminary Resulted Assessment/Plan Assessment/Plan Continue current antibiotic as she is receiving till final culture results are available. I will start her on lidocaine cream to apply to the back for her pain. Otherwise encouraged activity and ambulation. Continue rest of supportive care and treatment. Follow clinical management per clinical course. Discussed with the patient and nurse regarding care plan. Plan discussed with: Patient My Orders Orders - CHARLIE ESTRELLA MD Procedure Category Date Status Time Troponin-I Hs LAB 12/11/24 Verified 06:00 Troponin-I Hs LAB 12/10/24 Logged 17:18 Pt Request For Service PT 12/10/24 Logged 14:18 Lidocaine 5% Topical PHA 12/10/24 Verified Ointment (Xylocaine 22:00 Problem List: (1) Pyelonephritis (2) Intractable back pain (3) Flank pain Date of Service: Dec 10, 2024 Billing Provider: CHARLIE ESTRELLA MD Common Visit Codes: [id number] INP/OBS CARE(MOD) CHARLIE ESTRELLA MD Dec 10, 2024 15:56
[2024-12-10] MEDS: LIDOCAINE HCL 5 % TOP OINT 35 GM TOP SCH (22:11)
[2024-12-11] VITALS (7 sets, daily range): BP systolic 100–127; BP diastolic 59–75; PULSE 60–80; RESP 18; TEMP 97.9–98.7; O2SAT 93–99
[2024-12-11 06:17] LABS: Hematocrit 37.9 % (36.0-46.0); Hemoglobin 12.9 g/dL (12.2-16.2); Mean Corpuscular Hemoglobin 32.7 pg (28.0-32.0); Mean Corpuscular Volume 96.2 fL (80.0-100.0); Nucleated Red Blood Cells % 0.1 %
[2024-12-11 06:25] LABS: Alanine Aminotransferase 17 U/L (7-40); Alkaline Phosphatase 51 U/L (46-116); Anion Gap 8 (5-15); Calcium 8.7 mg/dL (8.7-10.4); Carbon Dioxide 26 mmol/L (20-31); Glucose 85 mg/dL (74-106); Potassium 4.1 mmol/L (3.5-5.1); Sodium 143 mmol/L (136-145)
[2024-12-11 06:26] LABS: BUN/Creatinine Ratio 13.7 (10.0-20.0); Blood Urea Nitrogen 10 mg/dL (9-23); Total Protein 6.0 g/dL (5.7-8.2)
[2024-12-11 06:27] LABS: Albumin 3.7 g/dL (3.2-4.8)
[2024-12-11 06:39] LABS: Bilirubin, Total 0.3 mg/dL (0.2-1.0); Chloride 109 mmol/L (98-107)
[2024-12-11] MEDS ORDERED: APIX5TAB PO (09:03)
[2024-12-11] MEDS ORDERED: PANT1INJ3 IV (09:03)
[2024-12-11] MEDS ORDERED: EZET10TA22 PO (09:03)
[2024-12-11] MEDS ORDERED: AMLO1TAB22 PO (09:03)
[2024-12-11] MEDS ORDERED: METO-289 PO (09:03)
[2024-12-11] MEDS ORDERED: PRAV20TA3 PO (09:03)
[2024-12-11] MEDS ORDERED: EST0625T EXT (09:05)
--- NOTE | 2024-12-11 15:20 | DVHPN2 ---
Subjective Urine culture is growing mixed stu. Patient's symptoms are improved. Changes from previous H/P or p: No Changes Objective Vitals Vital Signs Date Time Temp Pulse Resp B/P (MAP) Pulse Ox O2 Delivery O2 Flow Rate FiO2 12/11/24 13:00 97.9 70 18 115/59 (77) 94 97.9 12/11/24 08:00 Nasal Cannula* 2 28 Intake/Output Intake and Output 12/11/24 07:00 Intake Total 804 ml Balance 804 ml Intake Oral 754 ml IV Total 50 ml # Voids 4 Exam Comfortable in bed without distress. Complains of mild right flank pain. HEENT neck supple no JVD. Heart regular rate and rhythm S1-S2. Lungs fair air movement without rales wheezes. Abdomen soft nontender obese positive bowel sounds. Extremities no edema positive pulses. Medications Current Medications Medications Dose Ordered Sig/Shani Route Start Time Stop Time Status Last Admin Dose Admin Ceftriaxone Sodium/Dextrose 50 ml @ 50 mls/hr DAILY IV 12/10/24 10:00 12/11/24 09:20 50 MLS/HR Sodium Chloride 10 ml Q8HR IV 12/09/24 22:00 12/11/24 14:00 10 ML Docusate Sodium 100 mg BIDPRN PRN PO 12/09/24 20:15 Acetaminophen 650 mg Q6HP PRN PO 12/09/24 20:15 Acetaminophen/ Hydrocodone Bitart 1 tab Q4HP PRN PO 12/09/24 20:15 12/10/24 22:17 1 TAB Ondansetron HCl 4 mg Q4HP PRN IV 12/09/24 20:15 Enoxaparin Sodium 40 mg DAILY SC 12/10/24 10:00 12/11/24 09:20 40 MG Lidocaine HCl 1 applic Q8HP TOP 12/10/24 22:00 12/11/24 14:00 1 APPLIC Laboratory Results Laboratory Tests 12/11/24 04:39 Chemistry Test 12/11/24 04:39 Albumin 3.7 g/dL (3.2-4.8) Calcium Level 8.7 mg/dL (8.7-10.4) Total Protein 6.0 g/dL (5.7-8.2) LFT Test 12/11/24 04:39 Alanine Aminotransferase (ALT) 17 U/L (7-40) Alkaline Phosphatase 51 U/L (46-116) Aspartate Amino Transferase (AST) 26 U/L (13-40) Total Bilirubin 0.3 mg/dL (0.2-1.0) Urinalysis Test 12/09/24 13:04 Urine Color Yellow (Yellow) Urine Clarity Turbid (Clear) H Urine pH 6.0 (5.0-9.0) Urine Specific [place] 1.021 (1.001-1.035) Urine Protein Negative (Negative) Urine Ketones Negative (Negative) Urine Blood Negative /uL (Negative) Urine Nitrite 2+ (Negative) H Urine Bilirubin Negative (Negative) Urine Urobilinogen 2 mg/dL (Negative) H Urine Leukocyte Esterase 3+ /uL (Negative) Urine RBC 1 /hpf (0 - 4) Urine Microscopic WBC 39 /HPF (0-5) H Urine Squamous Epithelial Cells Mod /hpf (<5) Urine Bacteria Mod /hpf (None Seen) H Urine Mucus Few (None Seen) Urine Glucose Normal mg/dL (Normal) Microbiology Microbiology Date/Time Source Procedure Growth Status 12/09/24 21:49 Blood Blood Culture - Preliminary NO GROWTH AFTER 24 HOURS OF INCUBATION. Resulted 12/09/24 13:04 Voided Urine Urine Culture - Final Complete Assessment/Plan Assessment/Plan Continue empiric antibiotics. Continue lidocaine for back pain. Continue physical therapy. Arrange for home health for PT and walker. If she remains stable discharge plan home tomorrow. Discussed with the patient and nurse regarding care plan. Plan discussed with: Patient My Orders Orders - CHARLIE ESTRELLA MD Procedure Category Date Status Time Lidocaine 5% Topical PHA 12/10/24 In Process Ointment (Xylocaine 22:00 * Photo Stylist CONS 12/11/24 Transmitted Consult Regular Diet DIET 12/11/24 Transmitted Dinner Problem List: (1) Lower extremity edema (2) Flank pain (3) Pyelonephritis (4) Intractable back pain Date of Service: Dec 11, 2024 Billing Provider: CHARLIE ESTRELLA MD Common Visit Codes: [id number] INP/OBS CARE(MOD) CHARLIE ESTRELLA MD Dec 11, 2024 15:20
[2024-12-12 05:00] VITALS: BP 134/77; PULSE 76; RESP 18; TEMP 98.4; O2SAT 99
[2024-12-12 05:11] LABS: Hematocrit 38.6 % (36.0-46.0); Hemoglobin 13.1 g/dL (12.2-16.2); Mean Corpuscular Hemoglobin 32.4 pg (28.0-32.0); Mean Corpuscular Volume 95.2 fL (80.0-100.0); Nucleated Red Blood Cells % 0.2 %
[2024-12-12 06:46] LABS: Alanine Aminotransferase 16 U/L (7-40); Albumin 3.7 g/dL (3.2-4.8); Alkaline Phosphatase 50 U/L (46-116); Anion Gap 5 (5-15); BUN/Creatinine Ratio 15.1 (10.0-20.0); Blood Urea Nitrogen 11 mg/dL (9-23); Calcium 9.4 mg/dL (8.7-10.4); Carbon Dioxide 28 mmol/L (20-31); Glucose 97 mg/dL (74-106); Potassium 3.6 mmol/L (3.5-5.1); Sodium 143 mmol/L (136-145); Total Protein 6.0 g/dL (5.7-8.2)
[2024-12-12 06:47] LABS: Bilirubin, Total 0.3 mg/dL (0.2-1.0); Chloride 110 mmol/L (98-107)
[2024-12-12 08:00] VITALS: PULSE 75; RESP 18; O2SAT 97
[2024-12-12 09:00] VITALS: BP 140/83; PULSE 80; RESP 18; TEMP 98.1; O2SAT 97
[2024-12-12] MEDS ORDERED: LIDO5DIS21 TOP (12:41)
[2024-12-12] MEDS ORDERED: NITR-52 PO (12:41)
--- NOTE | 2024-12-12 12:43 | DVHDS2 ---
Discharge Summary Date of Admission Dec 09, 2024 at 20:02 Date of Discharge: Dec 12, 2024 Labs/Diagnostic Data: Laboratory Results Test 12/12/24 04:47 12/11/24 04:39 12/09/24 13:04 White Blood Count 4.5 10^3/uL (4.4-10.8) Red Blood Count 4.06 10^6/uL (4.0-5.20) Hemoglobin 13.1 g/dL (12.2-16.2) Hematocrit 38.6 % (36.0-46.0) Mean Corpuscular Volume 95.2 fL (80.0-100.0) Mean Corpuscular Hemoglobin 32.4 pg (28.0-32.0) Mean Corpuscular Hemoglobin Concent 34.0 g/dL (32.0-36.0) Red Cell Distribution Width 13.5 % (11.8-14.3) Platelet Count 180 10^3/uL (140-450) Mean Platelet Volume 7.7 fL (6.9-10.8) Neutrophils (%) (Auto) 48.0 % (37.0-80.0) Lymphocytes (%) (Auto) 36.0 % (10.0-50.0) Monocytes (%) (Auto) 12.9 % (0.0-12.0) Eosinophils (%) (Auto) 2.3 % (0.0-7.0) Basophils (%) (Auto) 0.8 % (0.0-2.0) Neutrophils # (Auto) 2.2 10 ^3/uL (1.6-8.6) Lymphocytes # (Auto) 1.6 10 ^3/uL (0.4-5.4) Monocytes # (Auto) 0.6 10 ^3/uL (0-1.3) Eosinophils # (Auto) 0.1 10 ^3/uL (0-0.8) Basophils # (Auto) 0 10 ^3/uL (0-0.2) Nucleated Red Blood Cells 0.2 % Sodium Level 143 mmol/L (136-145) Potassium Level 3.6 mmol/L (3.5-5.1) Chloride Level 110 mmol/L (98-107) Carbon Dioxide Level 28 mmol/L (20-31) Anion Gap 5 (5-15) Blood Urea Nitrogen 11 mg/dL (9-23) Creatinine 0.73 mg/dL (0.550-1.02) Glomerular Filtration Rate Calc 81 mL/min (>90) BUN/Creatinine Ratio 15.1 (10.0-20.0) Serum Glucose 97 mg/dL (74-106) Calcium Level 9.4 mg/dL (8.7-10.4) Total Bilirubin 0.3 mg/dL (0.2-1.0) Aspartate Amino Transferase (AST) 23 U/L (13-40) Alanine Aminotransferase (ALT) 16 U/L (7-40) Alkaline Phosphatase 50 U/L (46-116) Total Protein 6.0 g/dL (5.7-8.2) Albumin 3.7 g/dL (3.2-4.8) Troponin I High Sensitivity 14 ng/L (</=34) Urine Color Yellow (Yellow) Urine Clarity Turbid (Clear) Urine pH 6.0 (5.0-9.0) Urine Specific [place] 1.021 (1.001-1.035) Urine Protein Negative (Negative) Urine Ketones Negative (Negative) Urine Blood Negative /uL (Negative) Urine Nitrite 2+ (Negative) Urine Bilirubin Negative (Negative) Urine Urobilinogen 2 mg/dL (Negative) Urine Leukocyte Esterase 3+ /uL (Negative) Urine RBC 1 /hpf (0 - 4) Urine Microscopic WBC 39 /HPF (0-5) Urine Squamous Epithelial Cells Mod /hpf (<5) Urine Bacteria Mod /hpf (None Seen) Urine Mucus Few (None Seen) Urine Glucose Normal mg/dL (Normal) Other Laboratory Tests 12/12/24 04:47 Brief Hx & Hospital Course: 84F presents with three days of right-sided flank pain associated with dysuria and polyuria. Patient reports tactile fevers and right flank pain that is 8/10 nonradiating it is not relieved by anything. She is admitted and noted to have a acute urinary tract infection. Patient treated with antibiotics. Patient received supportive care and treatment with pain medications IV fluids. Patient's symptoms resolved. Therefore she has been discharged home in stable condition. I have talked with the patient regarding her hospital course, treatment she received, discharge medications, discharge instructions and follow-up plan of care. She has verbalized understanding of these and agree with the care plan as outlined. Condition at Discharge: Stable Final Diagnosis/Problems List Acute urinary tract infection, low back pain Discharge Disposition: Home Discharge Instruct/Medications Diet: Consistent carbohydrate, Cardiac 2g Na,low cholest Activity: No Restrictions, As Tolerated Follow Up/Referral: Your primary care physician after two weeks for back pain management Medications: As prescribed and home medications as you were taking per discharge med reconciliation list New Medications: Lidocaine (Lidoderm 5% Topical Patch) 1 Patch Ph 1 PATCH TOP DAILY, #30 PATCH Apply once a day to lower back area where your pain is Nitrofurantoin (Nitrofurantoin) 100 Mg Cap 1 CAP PO BID, #8 CAP Continued Medications: Amlodipine Besylate (Amlodipine Besylate) 5 Mg Tab 5 MG PO DAILY for 30 Days, MG Apixaban Base (Eliquis) 5 Mg Tab 5 MG PO BID, TAB Estrogens, Conjugated (Premarin Tablet) 0.625 Mg Tb 0.625 MG EXT DAILY for 1 Day, MG Ezetimibe (Zetia) 10 Mg Tab 10 MG PO, TAB Metoprolol Succinate (Metoprolol Succinate Er) 50 Mg Tab 50 MG PO DAILY for 30 Days, MG Pravastatin Sodium (Pravachol Tablet) 20 Mg Tb 20 MG PO DAILY for 1 Day, #1 TAB Discontinued Medications: Pantoprazole Sodium (Pantoprazole Sodium) 40 Mg Inj 40 MG IV DAILY, INJ Scheduled Amlodipine Besylate (Amlodipine Besylate), 5 MG PO DAILY, (Reported) Apixaban Base (Eliquis), 5 MG PO BID, (Reported) Estrogens, Conjugated (Premarin Tablet), 0.625 MG EXT DAILY, (Reported) Lidocaine (Lidoderm 5% Topical Patch), 1 PATCH TOP DAILY Metoprolol Succinate (Metoprolol Succinate Er), 50 MG PO DAILY, (Reported) Nitrofurantoin (Nitrofurantoin), 1 CAP PO BID Pravastatin Sodium (Pravachol Tablet), 20 MG PO DAILY, (Reported) Miscellaneous Medications Ezetimibe (Zetia), 10 MG PO, (Reported) Discontinued Medications Pantoprazole Sodium (Pantoprazole Sodium), 40 MG IV DAILY, (Reported) Discharge Statement: "Patient was advised to return to the ER or call 911 if any headaches, dizziness, shortness of breath, chest pain, abdominal pain, bleeding, fevers, or worsening of medical condition. Patient was counseled about treatment plan, medications, possible side effects, patientverbalized understanding. All questions were answered to the best of my ability. This discharge took greater then 30 minutes in planning, reviewing documentation, counseling the patient, and discussing with other team members." ASSESSMENT ASSESSMENT Assessment Acute urinary tract infection, low back pain Date of Service: Dec 12, 2024 Billing Provider: CHARLIE ESTRELLA MD Common Visit Codes: 17480-HJA/OBS DISCH DAY <30MIN CHARLIE ESTRELLA MD Dec 12, 2024 12:43
[2024-12-12 13:00] VITALS: BP 136/86; PULSE 73; RESP 20; TEMP 98; O2SAT 97
== END 2024-12-12 16:40 | disposition home or self-care (01) | DRG 690 ==
LOC: EDBD 12:36 → ER 12:36 → OVERFLOW 20:02 → WEST WING 20:04
PROVIDERS: ADMIT Hospitalist; ATTEND Hospitalist
DX: N12 Tubulo-interstitial nephritis, not specified as acute or chronic (principal); I25.10 Atherosclerotic heart disease of native coronary artery without angina pectoris; I10 Essential (primary) hypertension; F41.9 Anxiety disorder, unspecified; Z79.899 Other long term (current) drug therapy
CPT/HCPCS: 36415; 80048; 80053; 81001; 82962; 84484; 85025; 87040; 87086; 96365; 96375; 97163; 99291; G0378; J2405